=== PATIENT | female | born 1995 | race Caucasian/White ===

== ENCOUNTER 2020-05-15 01:25 | Inpatient (IN) | payer OTHER, SELFPAY ==
[2020-05-15] VITALS (71 sets, daily range): BP systolic 99–140; BP diastolic 57–95; PULSE 67–146; RESP 16; TEMP 36.2–36.9; O2SAT 81–100; BMI 34.1
[2020-05-15 01:21] LABS: ROM Internal Control Test YES-OK TO RESULT pt. (Internal QC)
[2020-05-15 01:24] LABS: ROM Patient Test POSITIVE (Negative)
[2020-05-15] MEDS: Lactated Ringers 1,000 ML 200 ML IV ×3 (01:50→10:30)
[2020-05-15 02:30] LABS: Absolute Lymphocyte Count 2.31 X10^3/uL (0.83-4.51); Absolute Neutrophil Count 14.1 X10^3/uL (2.0-7.7); Basophil# 0.05 X10^3/uL; Basophil% 0.3 % (0-1); Eosinophil# 0.55 X10^3/uL; Hematocrit 33.7 % (37-47); Hemoglobin 10.3 g/dL (12.0-15.0); Lymphocyte # 2.31 X10^3/ul (4.0); Lymphocyte % 12.7 % (19-41); Mean Corp Hgb Conc 30.6 g/dL (32-36); Mean Corpuscular Hgb 26.8 pg (27.0-32.0); Mean Corpuscular Volume 87.5 fL (81-99); Mean Platelet Vol. 11.6 fl (6.2-12.0); Monocyte# 1.07 X10^3/uL; Monocyte% 5.9 % (0-10); NRBC Flagged by Analyzer 0 % (0-5); Neutrophil # 14.12 X10^3/uL (2.7-7.7); Neutrophil % 77.4 % (47-70); Platelet Count 235 K/mm3 (150-450); RBC Distribution Width CV 14.2 % (11.6-14.6); RBC Distribution Width SD 44.9 fl (35.1-43.9); Red Blood Count 3.85 M/mm3 (4.2-5.4); White Blood Count 18.2 K/mm3 (4.4-11.0)
[2020-05-15 03:19] LABS: Probe Check PASS; Specimen Processing Control PASS
[2020-05-15] MEDS: Lactated Ringers 500 ML 999 ML IV (03:46)
[2020-05-15] MEDS: fentaNYL-bupivacaine (epidural) 100 ML BAG EPIDURAL ×2 (04:55→09:25)
[2020-05-15] MEDS: Oxytocin 30 units/NS 500 ml 30 UNITS/500 ML IV.SOLN IV (08:32)
[2020-05-15] MEDS: Ondansetron 4 MG/2 ML Vial IV (10:27)
[2020-05-15] MEDS: Oxytocin 30 units/NS 500 ml 30 UNITS/500 ML IV.SOLN 334 UNITS IV (12:40)
--- NOTE | 2020-05-15 13:48 | HP.PCM_ITS ---
History Date of Admission: 05/15/20 Final TAMARA: 05/15/20 Gestational age: 40 Weeks and 0 Days History of this : This is a 25 year-old, G [], P [], at 40 weeks gestational age. Allergies No Known Allergies Allergy (Verified 05/15/20 01:12) Home Medications: Home Medications Pnv No.103/Folic/Om3s/Fish Oil [ Gummies] 1 ea PO 05/15/20 Smoking Status: Former smoker Alcohol: None Number of Fetus(es): 1 History Past Pregnancies: Past Pregnancies Delivery Date Name GA/ Weeks Outcome Route Wt Sex Labor Length Anesthesia Delivery Location Provider FOB Labs: See [facility] prenatals Physical Exam Vitals: Vital Signs Temp Pulse BP Pulse Ox 97.7 F L 120 H 99/62 99 05/15/20 12:56 05/15/20 13:43 05/15/20 13:43 05/15/20 11:58 General: Alert, Oriented x3 Abdomen: Soft, Non Tender, Non-Distended, Gravid CLINICAL EDUCATION SPECIALIST: Normal external genitalia Estimated gestational size: Appropriate for gestational size Presentation: Cephalic Cervix Dilation (cm): 9 Station: 0 Effacement (%): 0 Assessment/Plan This is a 25 year-old, G3, P0020, at 40 weeks gestational age. Admit to L&D SROM - augment with pitocin Pain - epidural GBS negative COVID negative EFW - less than 4500g, patient with adequate pelvis Routine care
--- NOTE | 2020-05-15 13:52 | PCM.OPRPT ---
Vaginal Delivery Maternal Presentation: Spontaneous Rupture of Membranes Method of Induction: Pitocin - augmentation Amniotic Membrane Rupture Type: Spontaneous at home Amniotic Fluid Description: Clear Final TAMARA: 05/15/20 Gestational age: 40 Weeks and 0 Days Date of Procedure: 05/15/20 Pre-Operative Diagnosis: SROM Post-Operative Diagnosis: SROM Surgery/ Procedure Performed: Spontaneous Vaginal Delivery Type of Anesthesia: Epidural Description of Procedure: Patient prepped & draped in stirrups when C/C/+3. She pushed to deliver the head. head gently guided to allow delivery of anterior & posterior shoulders. No excess traction placed on head. Body delivered & infant placed on maternal abdomen. 3VC clamped & cut in delayed fashion. Placenta delivered with gentle traction. Good uterine tone obtained. Presentation: BENJI Placental Delivery Description: Expressed Placenta Disposition: [facility] Cord Vessel Description: 3 Vessels Cord Entanglement: None Estimated Blood Loss: 350ml A gender: Female - Kari (1 minute): 8 (5 minute): 9 Episiotomy Description: None Laceration: None Medications given after delivery: IV Pitocin Complications: None
--- NOTE | 2020-05-15 16:56 | NURSING ---
1630 pt oob up to br to void; gait steady; pt void 300 cc; fresh ice pack and tucks on
[2020-05-15] MEDS: Ibuprofen 600 MG Tablet PO (20:12)
[2020-05-15] MEDS: Acetaminophen 500 MG Tablet 1000 MG PO (23:18)
[2020-05-16] VITALS (7 sets, daily range): BP systolic 100–117; BP diastolic 55–80; PULSE 71–103; RESP 14–17; TEMP 35.7–36.4; O2SAT 97–99
--- NOTE | 2020-05-16 08:16 | PCM.PN.OB ---
Subjective: Patient seen at bedside. Feeling good. Voicing no needs or concerns at this time. issues with infant being difficult to latch but working with . Lochia decreased. Denies any pain. Voiding and passing flatus without difficulty. Objective: Firm at U - Physical Exam Vitals/I&O's: Vital Signs Temp Pulse Resp BP Pulse Ox 97.6 F L 96 14 100/59 L 99 05/16/20 03:19 05/16/20 03:19 05/16/20 03:19 05/16/20 03:05/15/20 11:58 Oxygen Delivery Method Room Air Weight: 205 lb Body Mass Index (BMI) 34.1 Intake and Output for Last 24 Hours 05/14/20 05/15/20 05/16/20 23:59 23:59 23:59 Intake Total 3957.28 / 3957.28 Output Total 4150 / 4150 Balance -192.72 / -192.72 General: Alert, Oriented x3 Oral: Moist Mucosa Lungs: Normal air movement Cardiovascular: Regular rate Abdomen: Soft, Non Tender Skin: No rashes Musculoskeletal: No Tenderness to Palpation of Joints or Extremities Neurological: Cranial nerves II-XII grossly intact Psych/Mental Status: Normal Affect Current Medications Acetaminophen (Tylenol) 1,000 mg PO Q8H PRN PRN PRN Reason: Pain Score 1-3/10 Last Admin: 05/15/20 23:18 Dose: 1,000 mg Documented by: Bisacodyl (Dulcolax) 10 mg RECTAL UD PRN PRN Reason: If no BM Dibucaine (Dibucaine) 1 applic TOPICAL TID PRN PRN; Protocol PRN Reason: Discomfort Hydrocortisone (Hytone) 1 applic TOPICAL TID PRN PRN; Protocol PRN Reason: Discomfort Ibuprofen (Motrin) 600 mg PO Q6H PRN PRN PRN Reason: Pain Score 1-3/10 Last Admin: 05/15/20 20:12 Dose: 600 mg Documented by: Methylergonovine Maleate (Methergine) 0.2 mg IM X1 PRN PRN Reason: Excess bleeding/uterine atony Ondansetron HCl (Zofran) 4 mg IV Q4H PRN PRN PRN Reason: Nausea Oxycodone HCl (Oxyir) 5 - 10 mg PO Q4H PRN PRN PRN Reason: Pain Score 4-10/10 Senna/Docusate Sodium (Senokot-S, Eda-Colace) 1 - 2 tablet PO DAILY PRN PRN PRN Reason: Constipation Simethicone (Mylicon) 80 mg PO PCHS PRN PRN Reason: Indigestion/Stomach pain Sodium Chloride () 5 - 15 ml IV UD PRN PRN Reason: SALINE FLUSH Medical Necessity - Tobacco Use Smoking Status: Former smoker
--- NOTE | 2020-05-16 08:18 | DCINST_ITS ---
Discharge Diet: No Restrictions Discharge Activity: Return to Normal Activity May resume sexual activity in: 6-8 weeks Additional Instructions: If you experience any of the following, contact your healthcare provider. * Bleeding that soaks a pad every hour for 2 hours * Fever 100.4 or higher * Unrelieved incision or abdominal pain * Swelling, redness, discharge or bleeding from your incision or episiotomy site * Your incision begins to separate * Problems urinating (including inability to urinate or burning while urinating). * Visual changes * Severe headache * Flu-like symptoms * Pain or redness in one of both of your breasts * Pain, warmth, tenderness or swelling in your legs, especially the calf area * Frequent nausea and vomiting * Symptoms of depression or anxiety If you experience any of the following, call 911 or go to the nearest Emergency Room. * Chest pain * Problems breathing * Seizure activity * Partial or complete paralysis of a body part, slurred speech, weakness or drooping of the face, or a sudden inability to walk or hold your balance Allergies/Adverse Reactions: Allergies No Known Allergies Allergy (Verified 05/15/20 01:12) Medications to take at Discharge Pnv No.103/Folic/Om3s/Fish Oil [ Gummies] 1 ea PO 05/15/20 Please Follow Up With: Inna Watt MD When: 2 weeks virtual visit/ 6 weeks in office Primary Care Physician: Care Physician,No Primary [Primary Care Provider] - Test Results: Test results from this visit will be discussed in further detail at your follow- up appointment, if applicable.
--- NOTE | 2020-05-16 08:18 | PCM.DCVAG ---
Discharge Diet: No Restrictions Discharge Activity: Return to Normal Activity May resume sexual activity in: 6-8 weeks Additional Instructions: If you experience any of the following, contact your healthcare provider. Bleeding that soaks a pad every hour for 2 hours Fever 100.4 or higher Unrelieved incision or abdominal pain Swelling, redness, discharge or bleeding from your incision or episiotomy site Your incision begins to separate Problems urinating (including inability to urinate or burning while urinating). Visual changes Severe headache Flu-like symptoms Pain or redness in one of both of your breasts Pain, warmth, tenderness or swelling in your legs, especially the calf area Frequent nausea and vomiting Symptoms of depression or anxiety If you experience any of the following, call 911 or go to the nearest Emergency Room. Chest pain Problems breathing Seizure activity Partial or complete paralysis of a body part, slurred speech, weakness or drooping of the face, or a sudden inability to walk or hold your balance Allergies/Adverse Reactions: Allergies No Known Allergies Allergy (Verified 05/15/20 01:12) Medications to take at Discharge Pnv No.103/Folic/Om3s/Fish Oil [ Gummies] 1 ea PO 05/15/20 Please Follow Up With: Inna Watt MD When: 2 weeks virtual visit/ 6 weeks in office Primary Care Physician: Care Physician,No Primary [Primary Care Provider] - Test Results: Test results from this visit will be discussed in further detail at your follow-up appointment, if applicable.
[2020-05-16] MEDS: Senna/Docusate Sodium 1 Tablet PO (08:38)
== END 2020-05-16 19:20 | disposition home or self-care (01) | DRG 807 ==
LOC: WPOUT 01:28 → WP 13:02
PROVIDERS: Admitting Provider Obstetrics & Gynecology; Referring Provider Obstetrics & Gynecology; Visit Provider Obstetrics & Gynecology
DX: O42.92 Full-term premature rupture of membranes, unspecified as to length of time between rupture and onset of labor (principal); Z37.0 Single live birth; Z3A.40 40 weeks gestation of pregnancy; Z87.891 Personal history of nicotine dependence
CPT/HCPCS: 59025; 59050; 84112; 85025; 86850; 86900; 86901; 87635; 99218; C9803; G2023; J7120; G0378; J2405; U0003